=== PATIENT | female | born 1980 | race Two or more races ===

== ENCOUNTER 2020-01-16 10:59 | Emergency (ER) | payer OTHER ==
[~2020-01-16] VITALS: Ht 157.5 cm; Wt 96.0 kg
--- NOTE | 2020-01-16 11:29 | NUR ---
DR GUZMAN, AT BS FOR EXAM. PT C/O LLQ PAIN, NAUSEA, VOMITING. HX: PID, DIVERTICULITIS. PT A&OX4, RESP EVEN & UNLABORED, SPEECH CLEAR.
[2020-01-16] MEDS ORDERED: ACET-1600 PO (11:33)
[2020-01-16] MEDS ORDERED: VITAMIN C (11:33)
[2020-01-16] MEDS ORDERED: VITAMIN D (11:33)
--- NOTE | 2020-01-16 11:40 | NUR ---
NO PAIN MED TODAY. TOOK TYLENOL AND DAYQUIL LAST NOC. NOT SEXUALLY ACTIVE, CURRENTLY. LMP: 1ST WEEK OF DECEMBER. LAST BM: TODAY. LAST ORAL: CRACKERS THIS MORNING.
--- NOTE | 2020-01-16 12:05 | NUR ---
PT AMBULATORY TO & FROM [facility] W/OUT INCIDENT; VOIDED SPECIMEN PROVIDED - CLEAR BORIS.
[2020-01-16 12:27] LABS: HCG UR SG 1.037 (1.003-1.030)
[2020-01-16 12:28] LABS: MICROSCOPIC INDICATED
[2020-01-16] MEDS ORDERED: ONDANSETRON ODT 4 MG PO PRN (12:30)
[2020-01-16] MEDS ORDERED: ONDANSETRON 2MG/ML, 2ML IVPush ONE (12:30)
[2020-01-16 12:35] LABS: BASOPHILS % (AUTO) 1 % (0-1); EOSINOPHILS % (AUTO) 0 % (1-7); LYMPHOCYTES % (AUTO) 29 % (22-44); MEAN CORPUSCULAR HEMOGLOBIN 27.1 pg (27.0-34.8); MEAN CORPUSCULAR HGB CONC 33.1 g/dL (32.4-35.8); MEAN PLATELET VOLUME 7.5 fL (7.4-10.4); MONOCYTES % (AUTO) 12 % (2-9); NEUTROPHILS % (AUTO) 57 % (42-75); PLATELET COUNT 220 x10^3/uL (130-400); RED BLOOD COUNT 4.46 x10^6/uL (3.82-5.3); RED CELL DISTRIBUTION WIDTH 14.4 % (9.6-15.2)
[2020-01-16 12:36] LABS: ANION GAP 8 mmol/L (5-15); CALCIUM 8.8 mg/dL (8.5-10.1); CHLORIDE 105 mmol/L (98-107)
[2020-01-16 12:41] LABS: ALANINE AMINOTRANSFERASE 197 U/L (12-78); ALKALINE PHOSPHATASE 80 U/L (45-117); BILIRUBIN,TOTAL 0.6 mg/dL (0.2-1.0); CREATININE 0.99 mg/dL (0.55-1.02); TOTAL PROTEIN 8.8 g/dL (6.4-8.2)
[2020-01-16 12:42] LABS: MD NO
[2020-01-16] MEDS ORDERED: SODIUM CHLORIDE 0.9% 1,000ML IVBOLUS ONE (13:00)
[2020-01-16] MEDS ORDERED: ONDANSETRON 2MG/ML, 2ML ONE ×2 (13:07→14:04)
--- NOTE | 2020-01-16 13:09 | NUR ---
PT DENIES NAUSEA. STATES SHE "STARTED FEELING BETTER AFTER (NS) STARTED PUMPING THROUGH". WILL HOLD ZOFRAN, FOR NOW.
[2020-01-16 13:10] VITALS: BP 124/82
--- NOTE | 2020-01-16 13:11 | NUR ---
REQUESTS PAIN MED; WILL NOTIFY ERP.
[2020-01-16] MEDS ORDERED: KETOROLAC 30 MG/1 ML ONE (14:00)
[2020-01-16] MEDS ORDERED: KETOROLAC 30 MG/1 ML IVPush ONE (14:00)
--- NOTE | 2020-01-16 14:03 | NUR ---
PT LYING QUIETLY ON GURNEY; REPORTS NAUSEA RETURNING. TORADOL GIVEN PER EMAR.
--- NOTE | 2020-01-16 14:07 | NUR ---
[place] GIVEN. PT TO CT PER KATTY.
== END 2020-01-16 16:10 | disposition home or self-care (01) ==
LOC: ED 11:57
DX: R10.32 Left lower quadrant pain (principal); R11.2 Nausea with vomiting, unspecified; R19.7 Diarrhea, unspecified; F17.290 Nicotine dependence, other tobacco product, uncomplicated
CPT/HCPCS: 36415; 74176; 80053; 81001; 81025; 85025; 87086; 96361; 96374; 96375; 99284; J1885; J2405; J7030